=== PATIENT | female | born 1970 | race Caucasian/White ===

== ENCOUNTER 2019-10-12 13:52 | Emergency (ER) | payer BC ==
[2019-10-12 14:08] VITALS: BP 114/56
--- NOTE | 2019-10-12 14:27 | UC ---
Lower Extremity/Ankle HPI - HPI Summary HPI Summary: 49-year-old female presenting with left lateral foot pain 5 days. Patient states that she slipped on the steps on Tuesday and caught herself but has noted pain ever since. She notes swelling at first but that has gone down. She notes bruising of 3rd-5th toes and also on the sole of foot. States she is weightbearing but is compensating by walking on her heel. Denies numbness and tingling. Denies ankle pain. States pain is minimal right now. Has been taking ibuprofen with relief of pain. - History of Current Complaint Chief Complaint: UCLowerExtremity Stated Complaint: FOOT INJURY Hx Obtained From: Patient Pain Intensity: 7 Pain Scale Used: 0-10 Numeric - Allergies/Home Medications Allergies/Adverse Reactions: Allergies Allergy/AdvReac Type Severity Reaction Status Date / Time No Known Allergies Allergy Verified 10/12/19 14:09 Home Medications: Home Medications Sertraline* [Zoloft*] 1 tab PO DAILY 10/12/19 [History Confirmed 10/12/19] PMH/Surg Hx/FS Hx/Imm Hx Previously Healthy: Yes - Surgical History Surgical History: Yes Surgery Procedure, Year, and Place: [facility] - Social History Alcohol Use: Occasionally Substance Use Type: None Smoking Status (MU): Never Smoked Tobacco Review of Systems All Other Systems Reviewed And Are Negative: No Constitutional: Positive: Negative Skin: Positive: Bruising - L foot Respiratory: Positive: Negative Cardiovascular: Positive: Negative Neurovascular: Positive: Negative Musculoskeletal: Positive: Arthralgia - L lateral foot. Negative: Decreased ROM , Edema Neurological: Negative: Paresthesia, Numbness Physical Exam Triage Information Reviewed: Yes Appearance: Well-Appearing, No Pain Distress, Well-Nourished Vital Signs: Initial Vital Signs Temp 98.8 F 10/12/19 14:06 Pulse 63 10/12/19 14:06 Resp 15 10/12/19 14:06 BP 114/56 10/12/19 14:06 Pulse Ox 100 10/12/19 14:06 Vital Signs Reviewed: Yes Eyes: Positive: Conjunctiva Clear ENT: Positive: Hearing grossly normal Neck: Positive: Supple Respiratory: Positive: No respiratory distress Cardiovascular: Positive: Pulses Normal - strong pedal pulses, Brisk Capillary Refill - <2 sec Musculoskeletal: Positive: ROM Intact - L foot dorsiflexion/plantarflexion, No Edema, Other: - tenderness to palpation of L lateral foot Neurological Exam: Other - sensation grossly intact Neurological: Positive: Alert Psychological: Positive: Age Appropriate Behavior Skin: Positive: Other - ecchymosis noted of L toes 3-5 and on lateral plantar aspect of L foot Diagnostics - Radiology L foot Radiology Interpretation Completed By: Radiologist Summary of Radiographic Findings: REPORT AND IMPRESSION: #. Nonarticular oblique mid to distal diaphyseal fracture of the fifth metatarsal with 2 cortex widths medial and dorsal displacement and mild shortening due to anterior posterior override of the fracture fragments. Overlying soft tissue swelling. # . Negative for additional fracture or articular malalignment. Lower Extremity Course/Dx - Course Course Of Treatment: Discussed fracture of the left fifth metatarsal. I placed patient in CAM boot and provided crutches. Instructed patient to be strictly nonweightbearing on left foot into follow up with orthopedics as soon as possible for further evaluation and treatment. Instructed to continue with symptomatic treatment. Patient voiced understanding and agreed with treatment plan. - Differential Dx/Diagnosis Provider Diagnosis: Displaced fracture of fifth metatarsal bone of left foot Discharge ED - Sign-Out/Discharge Documenting (check all that apply): Patient Departure All imaging exams completed and their final reports reviewed: Yes - Discharge Plan Condition: Stable Disposition: HOME Patient Education Materials: Foot Fracture in Adults (ED) Referrals: Surinder Austin MD [Medical Doctor] - As Soon As Possible Additional Instructions: As discussed, you have fractured your foot. DO NOT bear ANY weight on that foot. Use the CAM boot and crutches until you are able to follow up with orthopedics. You may continue to ice, elevate, and take ibuprofen for pain relief. Follow up with orthopedics listed below as soon as possible for further evaluation. - Billing Disposition and Condition Condition: STABLE Disposition: Home - Attestation Statements Provider Attestation: This patient was not seen by me. I was available for consult. Chart reviewed. DARLEEN
== END 2019-10-12 14:50 | disposition home or self-care (01) ==
LOC: UCEAST 13:52
DX: S92.352A Displaced fracture of fifth metatarsal bone, left foot, initial encounter for closed fracture (principal); S90.122A Contusion of left lesser toe(s) without damage to nail, initial encounter; W01.0XXA Fall on same level from slipping, tripping and stumbling without subsequent striking against object, initial encounter; Y92.9 Unspecified place or not applicable
CPT/HCPCS: 99213; G0463